=== PATIENT | male | born 1975 | race Caucasian/White ===

== ENCOUNTER 2019-09-29 14:40 | Outpatient (CLI) | payer BC ==
--- NOTE | 2019-09-29 16:20 | MRI ---
MR of the left shoulder without contrast INDICATION: Left shoulder pain. TECHNIQUE: Sagittal T1, axial and coronal PD fat sat, sagittal and coronal T2 fat sat images were obt ained of the left shoulder. COMPARISON: None. FINDINGS: Rotator cuff: There is a moderate tendinosis of the infraspinatus. There is mild tendinosis of the monk praspinatus. No full-thickness tear is evident. No muscular atrophy is present. There is a small T2 hyperintense cystlike abnormality overlying the musculature of the supraspinatus on image 22 series 7 and image 14 of series 4 which is likely related to a small venous varicosity. This measures 6.8 mm. Glenohumeral joint: Articular cartilage is intact. Glenoid labrum: There is a partial-thickness tear involving the anterior superior, superior and poste rior superior glenoid labrum consistent with a type II labral tear. There is there is partial thickness tear extension into the base of the biceps anchor on image 11 of series 4. There is no evid ence of tear extension into the long head of the biceps tendon. Biceps tendon and biceps anchor: Intact and located. Acromion clavicular joint: There is a moderate AC joint osteoarthrosis. Subacromial subdeltoid space: No appreciable fluid. Axillary region: No lymphadenopathy. Surrounding shoulder musculature: Normal. No evidence of atrophy or strain. IMPRESSION: 1. Type II SLAP tear. There is partial thickness tear extension into the base of the biceps anchor. 2. Moderate infraspinatus and mild supraspinatus tendinosis. 3. Moderate AC joint osteoarthrosis.
== END 2019-09-29 14:41 | disposition home or self-care (01) ==
LOC: SCSMRI 14:40
PROVIDERS: ATTEND Orthopaedic Surgery
DX: M25.512 Pain in left shoulder (principal); M75.92 Shoulder lesion, unspecified, left shoulder; M19.012 Primary osteoarthritis, left shoulder